=== PATIENT | female | born 1965 | race Caucasian/White ===

== ENCOUNTER 2018-08-21 22:58 | Emergency (ER) | payer BC ==
[2018-08-21] MEDS ORDERED: NS 0.9% 1000 ML* 1,000 ML IV ONE (23:09)
[2018-08-21] MEDS ORDERED: Ketorolac INJ* 30 MG/ML 1 ML VIAL IV PUSH ONE (23:10)
--- NOTE | 2018-08-22 00:32 | ED ---
GI/ HPI - HPI Summary HPI Summary: 52-year-old female presents with right flank pain for past couple days. She also admits to dysuria. She admits to suprapubic pain. She denies any history of UTIs. She denies any injury. She states she's been having pain in her right hip. She has full range of motion of her hip. is able to ambulate. pain does not radiate into legs. no saddle anesthesia or loss of bowel or bladder. no fever. no numbness or tingling. no abnormal vaginal discharge. no nausea, vomiting, or diarrhea. has history of right hip pain for past month but flank pain is new. she has hysterectomy, appendectomy, and gallbladder removed. - History of Current Complaint Chief Complaint: EDGeneral Time Seen by Provider: 08/21/18 23:16 Stated Complaint: RT HIP PAIN Pain Intensity: 7 - Allergy/Home Medications Allergies/Adverse Reactions: Allergies Allergy/AdvReac Type Severity Reaction Status Date / Time No Known Allergies Allergy Verified 08/21/18 23:04 PMH/Surg Hx/FS Hx/Imm Hx Endocrine/Hematology History: Reports: Hx Blood Disorders, Hx Blood Transfusions , Hx Diabetes, Hx Anemia, Hx Unexplained Bleeding Cardiovascular History: Reports: Hx Hypertension Denies: Hx Congestive Heart Failure, Other Cardiovascular Problems/Disorders Respiratory History: Reports: Hx Asthma Denies: Other Respiratory Problems/Disorders GI History: Reports: Hx Gall Bladder Disease History: Denies: Hx Renal Disease Musculoskeletal History: Reports: Hx Arthritis Neurological History: Reports: Hx Migraine Psychiatric History: Reports: Hx Anxiety - Surgical History Surgery Procedure, Year, and Place: Tonsilectomy 1969, 1983, [place] 1992 , [place] 1993, Tubal, Ovarian cyst removal 2012 - Immunization History Date of Tetanus Vaccine: unknown Date of Influenza Vaccine: 07/2018 Infectious Disease History: No Infectious Disease History: Denies: History Other Infectious Disease, Traveled Outside the [place] in Last 30 Days - Family History Known Family History: Positive: None Family History: R & n/C - Social History Alcohol Use: None Hx Substance Use: No Substance Use Type: Reports: None Hx Tobacco Use: No Smoking Status (MU): Never Smoked Tobacco Review of Systems Negative: Fever Negative: Chest Pain Negative: Shortness Of Breath Positive: Abdominal Pain. Negative: Vomiting, Diarrhea, Nausea Positive: flank pain All Other Systems Reviewed And Are Negative: Yes Physical Exam Triage Information Reviewed: Yes Vital Signs On Initial Exam: Initial Vitals Temp Pulse Resp BP Pulse Ox 96.5 F 87 16 134/77 96 08/21/18 23:01 08/21/18 23:01 08/21/18 23:01 08/21/18 23:01 08/21/18 23:01 Vital Signs Reviewed: Yes Appearance: Positive: Well-Appearing Skin: Positive: Warm, Dry Head/Face: Positive: Normal Head/Face Inspection Eyes: Positive: Normal, Conjunctiva Clear ENT: Positive: Pharynx normal Respiratory/Lung Sounds: Positive: Clear to Auscultation, Breath Sounds Present Cardiovascular: Positive: Normal, RRR Abdomen Description: Positive: Soft, CVA Tenderness (R), Other: - tenderness suprapubic Bowel Sounds: Positive: Present Musculoskeletal: Positive: Strength/ROM Intact - right hip, Other - good pulses , neg SLR, neg TATUM test, nontenderness right hip Neurological: Positive: Normal, Reflexes Intact - patella, Normal Gait Psychiatric: Positive: Normal Diagnostics - Vital Signs Vital Signs Temp Pulse Resp BP Pulse Ox 08/21/18 23:01 96.5 F 87 16 134/77 96 - Laboratory Result Diagrams: 08/22/18 00:37 08/22/18 00:37 Lab Statement: Any lab studies that have been ordered have been reviewed, and results considered in the medical decision making process. - CT abd CT Interpretation Completed By: Radiologist Summary of CT Findings: IMPRESSION: Cystic right ovarian lesion which may correlate with patient's symptomatology. and should be further characterized with ultrasound. Re-Evaluation - Re-Evaluation First Eval Re-Evaluation Time: 00:51 Change: Improved Comment: pain is better GIGU Course/Dx - Course Course Of Treatment: 52-year-old female presents with right flank pain for past couple days. She also admits to dysuria. She admits to suprapubic pain. She denies any history of UTIs. She denies any injury. She states she's been having pain in her right hip. She has full range of motion of her hip. is able to ambulate. pain does not radiate into legs. no saddle anesthesia or loss of bowel or bladder. no fever. no numbness or tingling. no abnormal vaginal discharge. no nausea, vomiting, or diarrhea. has history of right hip pain for past month but flank pain is new. on exam has tenderness right flank. suprapubic pain on exam. negative TATUM test. no midline tenderness back. neurovascular intact. nontender right hip with full ROM. urine no infection. wbc normal. CT shows ovarian cyst which may be cause of pain. there is no u/s at this time but patient appear comfortable so do not suspect ovarian torison at this time. told if pain gets worst to return for u/s. discussed that should get an ultrasound in future to further evaluate cyst by primary or ob. patient understand and agrees with plan. - Diagnoses Differential Diagnoses - Female: Pyelonephritis, Urinary Tract Infection, Ureteral Calculi Provider Diagnoses: Right ovarian cyst Discharge - Sign-Out/Discharge Documenting (check all that apply): Patient Departure - Discharge Plan Condition: Good Disposition: HOME Patient Education Materials: Ovarian Cyst (ED) Referrals: [facility] [Outside] [facility] [place] [facility] [Outside] Abbi Pickens MD [Medical Doctor] - Nicolás Sanchez MD [Medical Doctor] - Additional Instructions: Follow up with emergency veterinary assistant about ovarian cyst apply heat Take tyenlol or ibuprofen every 6 hours as needed for pain est care with primary, can use [facility] until primary establish also gave referral to Dr Sanchez who is an sample distributor Return to ED if develop any new or worsening symptoms - Billing Disposition and Condition Condition: GOOD Disposition: Home
[2018-08-22 00:39] LABS: Urine Appearance Cloudy; Urine Bilirubin Negative (Negative); Urine Blood Negative (Negative); Urine Color Yellow; Urine Glucose 1+(50 mg/dL) (Negative); Urine Ketones Trace (Negative); Urine Nitrite Negative (Negative); Urine Protein Negative (Negative); Urine Specific Gravity 1.024 (1.010-1.030); Urine Urobilinogen Positive (Negative)
[2018-08-22 00:46] LABS: ABS Basophils 0 10^3/ul (0-0.2); ABS Eosinophils 0.3 10^3/ul (0-0.6); ABS Lymphocytes 3.1 10^3/ul (1.0-4.8); ABS Monocytes 0.6 10^3/ul (0-0.8); ABS Neutrophils 4.9 10^3/ul (1.5-7.7); ABS Nucleated RBC 0 10^3/ul; Eosinophil % 3.2 %; Hematocrit 38 % (35-47); Hemoglobin 13.2 g/dl (12.0-16.0); Lymphocyte % 34.5 %; Mean Corpuscular HGB Conc 34 g/dl (31-36); Mean Corpuscular Hemoglobin 29 pg (27-31); Mean Corpuscular Volume 86 fL (80-97); Mean Platelet Volume 8.3 fL (7.4-10.4); Nucleated Red Blood Cells % 0.2; Platelet Count 202 10^3/ul (150-450); Red Blood Count 4.48 10^6/ul (4.00-5.40); Red Cell Distribution Width 13 % (10.5-15); White Blood Count 8.9 10^3/ul (3.5-10.8)
[2018-08-22 01:04] LABS: Albumin 3.5 g/dL (3.2-5.2); Albumin/Globulin Ratio 1.5 (1-3); BUN/Creatinine Ratio 15.3 (8-20); C Reactive Protein 12.42 mg/L (<8.01); Calcium 8.5 mg/dL (8.6-10.3); EGFR Non-African American 107.5 (>60); Globulin 2.4 g/dL (2-4); Potassium 3.6 mmol/L (3.5-5.0); Total Protein 5.9 g/dL (6.4-8.9)
[2018-08-22 02:29] VITALS: BP 105/80
== END 2018-08-22 02:32 | disposition home or self-care (01) ==
LOC: ED 22:58
DX: N83.201 Unspecified ovarian cyst, right side (principal); R10.84 Generalized abdominal pain
CPT/HCPCS: 36415; 74176; 80053; 81003; 83605; 83690; 85025; 86140; 96361; 96374; 99282; J1885